=== PATIENT | male | born 1945 | race Caucasian/White ===

== ENCOUNTER 2020-07-15 16:26 | Emergency (ER) | payer MEDICARE, BC ==
[2020-07-15] MEDS ORDERED: Sodium Chloride 0.9% 10 ML Syringe FLUSH PRN (16:37)
[2020-07-15] MEDS ORDERED: Metoprolol Tartrate 5 MG/5 ML SDV IVPUSH STA ×2 (16:38→17:11)
[2020-07-15] MEDS ORDERED: Metoprolol Succinate 50 MG Tab.ER PO STA (16:40)
[2020-07-15 17:31] VITALS: BP 130/63; PULSE 122
--- NOTE | 2020-07-15 18:09 | EDM.PDOC ---
ED HPI GENERAL MEDICAL PROBLEM - General Chief Complaint: Cardiovascular Problem Stated Complaint: A-FIB Time Seen by Provider: 07/15/20 16:35 Source of Information: Reports: Patient History Limitations: Reports: No Limitations - History of Present Illness INITIAL COMMENTS - FREE TEXT/NARRATIVE: Patient presented to the ED because of palpitations which got worse for the past week and his pMD ordered for an echo this morning but it was cancelled because his HR was too fast according to him. He was diagnosed with AFIB years ago and is taking metoprolol 25 mg daily. Denies any chest pain, dizziness, but has dyspnea most of the time and he was started on lasix for this. 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 Musculoskeletal History: Reports: None Neurological History: Reports: None Psychiatric History: Reports: Depression Endocrine/Metabolic History: Reports: None Hematologic History: Reports: Anemia, Blood Transfusion(s) Immunologic History: Reports: None Oncologic (Cancer) History: Reports: Colon Dermatologic History: Reports: None - Past Surgical History HEENT Surgical History: Reports: Tonsillectomy Respiratory Surgical History: Reports: None GI Surgical History: Reports: Appendectomy, Cholecystectomy, Colon, Colonoscopy Other GI Surgeries/Procedures: COLON RESECTION 2013 Endocrine Surgical History: Reports: None Social & Family History - Family History Family Medical History: No Pertinent Family History - Tobacco Use Tobacco Use Status *Q: Unknown Ever Used Tobacco - Caffeine Use Caffeine Use: Reports: None ED ROS GENERAL - Review of Systems Review Of Systems: See Below Constitutional: Reports: No Symptoms HEENT: Reports: No Symptoms Respiratory: Reports: No Symptoms Cardiovascular: Reports: Palpitations Endocrine: Reports: No Symptoms GI/Abdominal: Reports: No Symptoms : Reports: No Symptoms Musculoskeletal: Reports: No Symptoms Skin: Reports: No Symptoms Neurological: Reports: No Symptoms Psychiatric: Reports: No Symptoms ED EXAM, GENERAL - Physical Exam Exam: See Below Exam Limited By: No Limitations General Appearance: Alert, No Apparent Distress Eye Exam: Bilateral Eye: PERRL Ears: Normal External Exam, Normal Canal Nose: Normal Inspection, Normal Mucosa, No Blood Throat/Mouth: Normal Inspection, Normal Lips, Normal Teeth, Normal Gums Head: Atraumatic, Normocephalic Neck: Normal Inspection, Supple, Non-Tender, Full Range of Motion Respiratory/Chest: No Respiratory Distress, Lungs Clear, Normal Breath Sounds Cardiovascular: Normal Peripheral Pulses, Tachycardia, Irregularly Irregular GI/Abdominal: Normal Bowel Sounds, Soft, Non-Tender, No Organomegaly Back Exam: Normal Inspection, Full Range of Motion Extremities: Normal Inspection, Normal Range of Motion, Pedal Edema Neurological: Alert, Oriented, CN II-XII Intact, Normal Cognition #1 Interpretation EKG Date: 07/15/20 Time: 16:32 Rhythm: Other (SVT) Rate (Beats/Min): 144 [place]: Normal P-Wave: Present QRS: Normal Comparison: NA - No Prior EKG EKG Interpretation Comments: SVT PVC's #2 Interpretation EKG Date: 07/15/20 Time: 16:33 Rhythm: NSR Rate (Beats/Min): 110 [place]: Normal P-Wave: Present QRS: Normal ST-T: Normal QT: Normal Comparison: NA - No Prior EKG EKG Interpretation Comments: Sinus Tach #3 Interpretation EKG Date: 07/15/20 Time: 17:51 Rhythm: NSR Rate (Beats/Min): 80 [place]: Normal P-Wave: Present QRS: Normal ST-T: Normal QT: Normal Comparison: NA - No Prior EKG EKG Interpretation Comments: NSR PVC's Course - Vital Signs Text/Narrative:: Lab and EKG result was reviewed and discussed with patient Lopressor 5 mg IV x 2 doses Metoprolol tartrate 50 mg PO x1 Last Recorded V/S: Last Vital Signs Temp 37.3 C 07/15/20 16:30 Pulse 122 H 07/15/20 17:30 Resp 20 07/15/20 16:30 BP 130/63 07/15/20 17:30 Pulse Ox 96 07/15/20 16:30 - Orders/Labs/Meds Orders: Active Orders 24 hr Category Date Time Status EKG Documentation Completion [RC] ASDIRECTED Care 07/15/20 16:38 Active Sodium Chloride 0.9% [Saline Flush] Med 07/15/20 16:37 Active 10 ml FLUSH ASDIRECTED PRN Saline Lock Insert [OM.PC] Routine Oth 07/15/20 16:37 Ordered EKG 12 Lead [EK] Routine Ther 07/15/20 16:37 Ordered Medication Orders Sodium Chloride (Sodium Chloride 0.9% 10 Ml Syringe) 10 ml FLUSH ASDIRECTED PRN PRN Reason: Keep Vein Open Last Admin: 07/15/20 17:16 Dose: 10 ml Documented by: TOM Labs: Laboratory Tests 07/15/20 07/15/20 07/15/20 Range/Units 16:48 16:48 16:48 WBC 10.0 (3.2-10.1) x10-3/uL RBC 4.52 (3.90-5.90) x10(6)uL Hgb 15.2 (12.9-17.7) g/dL Hct 43.3 (38.3-50.1) % MCV 95.9 (80.8-98.7) fL MCH 33.6 H (27.0-33.3) pg MCHC 35.0 (28.7-35.3) g/dL RDW 13.3 (12.4-15.0) % Plt Count 205 (117-477) x10(3)uL MPV 9.2 (6.7-11.0) fL Neut % (Auto) 75.7 H (40.3-71.8) % Lymph % (Auto) 12.6 L (15.8-45.3) % [place] % (Auto) 10.4 (5.5-15.2) % Eos % (Auto) 1.0 (0.1-6.8) % Baso % (Auto) 0.3 (0.3-3.8) % Neut # (Auto) 7.6 H (1.7-6.9) x10-3/uL Lymph # (Auto) 1.3 (0.5-4.5) x10-3/uL [place] # (Auto) 1.0 (0.0-1.2) x10-3/uL Eos # (Auto) 0.1 (0.0-0.6) x10-3/uL Baso # (Auto) 0.0 (0.0-0.3) x10-3/uL PT 10.8 (9.0-11.1) sec INR 1.00 (1.00-1.24) APTT 23.3 L (24.4-33.2) SECONDS Sodium 140 (135-145) mmol/L Potassium 3.7 (3.5-5.3) mmol/L Chloride 99 L (100-110) mmol/L Carbon Dioxide 27 (21-32) mmol/L BUN 21 H (7-18) mg/dL Creatinine 1.6 H (0.70-1.30) mg/dL Est Cr Clr Drug Dosing TNP Estimated GFR (MDRD) 42 L (>60) BUN/Creatinine Ratio 13.1 (9-20) Glucose 189 H (80-116) mg/dL Calcium 8.9 (8.6-10.2) mg/dL Total Bilirubin 0.9 (0.1-1.3) mg/dL AST 17 (5-25) IU/L ALT 36 (12-36) U/L Alkaline Phosphatase 73 (56-112) IU/L Troponin I (4.0-60.3) pg/mL Total Protein 7.2 (6.0-8.0) g/dL Albumin 3.7 (3.2-4.6) g/dL Globulin 3.5 g/dL Albumin/Globulin Ratio 1.1 07/15/20 Range/Units 16:48 WBC (3.2-10.1) x10-3/uL RBC (3.90-5.90) x10(6)uL Hgb (12.9-17.7) g/dL Hct (38.3-50.1) % MCV (80.8-98.7) fL MCH (27.0-33.3) pg MCHC (28.7-35.3) g/dL RDW (12.4-15.0) % Plt Count (117-477) x10(3)uL MPV (6.7-11.0) fL Neut % (Auto) (40.3-71.8) % Lymph % (Auto) (15.8-45.3) % [place] % (Auto) (5.5-15.2) % Eos % (Auto) (0.1-6.8) % Baso % (Auto) (0.3-3.8) % Neut # (Auto) (1.7-6.9) x10-3/uL Lymph # (Auto) (0.5-4.5) x10-3/uL [place] # (Auto) (0.0-1.2) x10-3/uL Eos # (Auto) (0.0-0.6) x10-3/uL Baso # (Auto) (0.0-0.3) x10-3/uL PT (9.0-11.1) sec INR (1.00-1.24) APTT (24.4-33.2) SECONDS Sodium (135-145) mmol/L Potassium (3.5-5.3) mmol/L Chloride (100-110) mmol/L Carbon Dioxide (21-32) mmol/L BUN (7-18) mg/dL Creatinine (0.70-1.30) mg/dL Est Cr Clr Drug Dosing Estimated GFR (MDRD) (>60) BUN/Creatinine Ratio (9-20) Glucose (80-116) mg/dL Calcium (8.6-10.2) mg/dL Total Bilirubin (0.1-1.3) mg/dL AST (5-25) IU/L ALT (12-36) U/L Alkaline Phosphatase (56-112) IU/L Troponin I 16.6 (4.0-60.3) pg/mL Total Protein (6.0-8.0) g/dL Albumin (3.2-4.6) g/dL Globulin g/dL Albumin/Globulin Ratio Meds: Medications Generic Name Dose Route Start Last Admin Trade Name Freq PRN Reason Stop Dose Admin Sodium Chloride 10 ml 07/15/20 16:37 07/15/20 17:16 Sodium Chloride 0.9% 10 Ml Syringe FLUSH 10 ml ASDIRECTED PRN Administration Keep Vein Open Discontinued Medications Generic Name Dose Route Start Last Admin Trade Name Freq PRN Reason Stop Dose Admin Metoprolol Succinate 50 mg 07/15/20 16:40 07/15/20 16:55 Metoprolol Succinate 50 Mg Tab.Er PO 07/15/20 16:41 50 mg NOW STA Administration Metoprolol Tartrate 5 mg 07/15/20 16:38 07/15/20 16:52 Metoprolol Tartrate 5 Mg/5 Ml Sdv IVPUSH 07/15/20 16:39 5 mg NOW STA Administration Metoprolol Tartrate 5 mg 07/15/20 17:11 07/15/20 17:30 Metoprolol Tartrate 5 Mg/5 Ml Sdv IVPUSH 07/15/20 17:12 5 mg NOW STA Administration Departure - Departure Time of Disposition: 18:25 Disposition: Home, Self-Care 01 Condition: Good Clinical Impression: Palpitations Instructions: Palpitations, [id number] Referrals: Mina Duval MD [Primary Care Provider] - Forms: ED Department Discharge Additional Instructions: Please read discharge instructions on palpitations Increase the dose of your metoprolol from 25 mg daily to 50 mg daily Reschedule your echocardiogram Keep your appointment to be seen by your doctor this week Sepsis Event Note (ED) - Evaluation Sepsis Screening Result: No Definite Risk - Focused Exam Vital Signs: Vital Signs Temp Pulse Pulse Resp BP BP Pulse Ox 07/15/20 17:30 122 H 130/63 07/15/20 16:55 140 H 145/83 H 07/15/20 16:52 140 H 145/83 H 07/15/20 16:30 37.3 C 140 H 20 168/120 H 96 - My Orders Last 24 Hours: My Active Orders 07/15/20 16:37 Sodium Chloride 0.9% [Saline Flush] 10 ml FLUSH ASDIRECTED PRN Saline Lock Insert [OM.PC] Routine EKG 12 Lead [EK] Routine 07/15/20 16:38 EKG Documentation Completion [RC] ASDIRECTED - Assessment/Plan Last 24 Hours: My Active Orders 07/15/20 16:37 Sodium Chloride 0.9% [Saline Flush] 10 ml FLUSH ASDIRECTED PRN Saline Lock Insert [OM.PC] Routine EKG 12 Lead [EK] Routine 07/15/20 16:38 EKG Documentation Completion [RC] ASDIRECTED
== END 2020-07-15 18:40 | disposition home or self-care (01) ==
LOC: FB.ED 16:26
DX: R00.2 Palpitations (principal)
CPT/HCPCS: 36415; 80053; 84484; 85025; 85610; 85730; 93005; 96374; 96376; 99285-25; A9270-GY; J3490

== ENCOUNTER 2020-08-22 08:19 | Emergency (ER) | payer MEDICARE, BC ==
[2020-08-22] MEDS ORDERED: traMADol 50 MG Tab PO STA (09:17)
[2020-08-22] MEDS ORDERED: Acetaminophen 500 MG Tab PO STA (09:17)
--- NOTE | 2020-08-22 09:57 | EDM.PDOC ---
ED HPI GENERAL MEDICAL PROBLEM - General Stated Complaint: LEFT WRIST PAIN Time Seen by Provider: 08/22/20 08:30 Source of Information: Reports: Patient History Limitations: Reports: No Limitations - History of Present Illness INITIAL COMMENTS - FREE TEXT/NARRATIVE: Patient presented to the ED because of left wrist pain and swelling. He had an angiogram done on his left antecubital area yesterday and last night his left hand and wrist started throbbing and swelling. Left Wrist Pain Score (Numeric/FACES): 9 - Related Data Allergies Allergy/AdvReac Type Severity Reaction Status Date / Time No Known Allergies Allergy Verified 07/15/20 17:11 Home Meds: Home Meds Metoprolol Succinate 75 mg PO DAILY 07/15/20 [History] Cyanocobalamin (Vitamin B-12) [Vitamin B-12] 1,000 mcg SL DAILY 08/22/20 [History] Emollient [Vanicream] 1 applic TOP TID PRN 08/22/20 [History] Furosemide [Lasix] 20 mg PO DAILY 08/22/20 [History] Glimepiride [Amaryl] 2 mg PO WITHBREAKFAST 08/22/20 [History] HCTZ/Triamterene [Dyazide 25-37.5 MG] 1 cap PO DAILY 08/22/20 [History] Magnesium Chloride [Slow-Mag] 2 tab PO DAILY 08/22/20 [History] Potassium Chloride [Klor-Con 10] 10 meq PO DAILY 08/22/20 [History] atorvaSTATin [Lipitor] 10 mg PO BEDTIME 08/22/20 [History] cephALEXin [Keflex] 500 mg PO Q8H #30 cap 08/22/20 [Rx] metFORMIN HCl [Metformin ER Gastric] 1,000 mg PO BID 08/22/20 [History] traMADol [Ultram] 100 mg PO Q8H PRN #15 tab 08/22/20 [Rx] Past Medical History Cardiovascular History: Reports: Afib, SOB on Exertion Respiratory History: Reports: None Gastrointestinal History: Reports: Cholelithiasis Genitourinary History: Reports: None 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 Musculoskeletal History: Reports: None Neurological History: Reports: None Psychiatric History: Reports: Depression Endocrine/Metabolic History: Reports: None Hematologic History: Reports: Anemia, Blood Transfusion(s) Immunologic History: Reports: None Oncologic (Cancer) History: Reports: Colon Dermatologic History: Reports: None - Past Surgical History HEENT Surgical History: Reports: Tonsillectomy Respiratory Surgical History: Reports: None GI Surgical History: Reports: Appendectomy, Cholecystectomy, Colon, Colonoscopy Other GI Surgeries/Procedures: COLON RESECTION 2014 Endocrine Surgical History: Reports: None Social & Family History - Family History Family Medical History: No Pertinent Family History - Caffeine Use Caffeine Use: Reports: None ED ROS GENERAL - Review of Systems Review Of Systems: See Below Constitutional: Reports: No Symptoms HEENT: Reports: No Symptoms Respiratory: Reports: No Symptoms Cardiovascular: Reports: No Symptoms Endocrine: Reports: No Symptoms GI/Abdominal: Reports: No Symptoms : Reports: No Symptoms Musculoskeletal: Reports: No Symptoms Skin: Reports: Erythema Neurological: Reports: No Symptoms Psychiatric: Reports: No Symptoms ED EXAM, GENERAL - Physical Exam Exam: See Below Exam Limited By: No Limitations General Appearance: Alert, No Apparent Distress Eye Exam: Bilateral Eye: PERRL Ears: Normal External Exam, Normal Canal Nose: Normal Inspection, Normal Mucosa, No Blood Throat/Mouth: Normal Inspection, Normal Lips, Normal Teeth Head: Atraumatic, Normocephalic Neck: Normal Inspection, Supple, Non-Tender, Full Range of Motion Respiratory/Chest: No Respiratory Distress, Lungs Clear, Normal Breath Sounds, No Accessory Muscle Use, Chest Non-Tender Cardiovascular: Normal Peripheral Pulses, Regular Rate, Rhythm, No Edema, No Gallop, No JVD, No Murmur, No Rub GI/Abdominal: Normal Bowel Sounds, Soft, Non-Tender, No Organomegaly Back Exam: Normal Inspection, Full Range of Motion Extremities: Normal Inspection, Normal Range of Motion, Non-Tender, Other (left wrist tenderness and swelling) Neurological: Oriented Course - Vital Signs Text/Narrative:: Lab and xray result was reviewed and discussed with patient Tramadol 100 mg PO x1 Tylenol 1000 mg PO x1 Last Recorded V/S: Last Vital Signs Temp 37.3 C 08/22/20 08:26 Pulse 66 08/22/20 08:26 Resp 20 08/22/20 08:26 BP 145/80 H 08/22/20 08:26 Pulse Ox 93 L 08/22/20 08:26 - Orders/Labs/Meds Orders: Active Orders 24 hr Category Date Time Status Wrist Comp Min 3V Lt [CR] Stat Exams 08/22/20 09:19 Taken Labs: Laboratory Tests 08/22/20 08/22/20 08/22/20 Range/Units 09:35 09:35 09:35 WBC 12.5 H (3.2-10.1) x10-3/uL RBC 4.54 (3.90-5.90) x10(6)uL Hgb 14.8 (12.9-17.7) g/dL Hct 42.7 (38.3-50.1) % MCV 94.1 (80.8-98.7) fL MCH 32.6 (27.0-33.3) pg MCHC 34.6 (28.7-35.3) g/dL RDW 13.1 (12.4-15.0) % Plt Count 216 (117-477) x10(3)uL MPV 9.9 (6.7-11.0) fL Neut % (Auto) 82.2 H (40.3-71.8) % Lymph % (Auto) 6.5 L (15.8-45.3) % [place] % (Auto) 10.8 (5.5-15.2) % Eos % (Auto) 0.4 (0.1-6.8) % Baso % (Auto) 0.1 L (0.3-3.8) % Neut # (Auto) 10.3 H (1.7-6.9) x10-3/uL Lymph # (Auto) 0.8 (0.5-4.5) x10-3/uL [place] # (Auto) 1.3 H (0.0-1.2) x10-3/uL Eos # (Auto) 0.0 (0.0-0.6) x10-3/uL Baso # (Auto) 0.0 (0.0-0.3) x10-3/uL D-Dimer, Quantitative 0.41 (0.0-0.59) mg/LFEU Sodium 138 (135-145) mmol/L Potassium 3.7 (3.5-5.3) mmol/L Chloride 98 L (100-110) mmol/L Carbon Dioxide 29 (21-32) mmol/L BUN 18 (7-18) mg/dL Creatinine 1.4 H (0.70-1.30) mg/dL Est Cr Clr Drug Dosing 45.63 mL/min Estimated GFR (MDRD) 49 L (>60) BUN/Creatinine Ratio 12.9 (9-20) Glucose 210 H (80-116) mg/dL Calcium 9.4 (8.6-10.2) mg/dL Meds: Medications Discontinued Medications Generic Name Dose Route Start Last Admin Trade Name Freq PRN Reason Stop Dose Admin Acetaminophen 1,000 mg 08/22/20 09:17 08/22/20 09:24 Acetaminophen 500 Mg Tab PO 08/22/20 09:18 1,000 mg NOW STA Administration Tramadol HCl 100 mg 08/22/20 09:17 08/22/20 09:23 Tramadol 50 Mg Tab PO 08/22/20 09:18 100 mg NOW STA Administration Departure - Departure Time of Disposition: 10:30 Disposition: Home, Self-Care 01 Condition: Good Clinical Impression: Cellulitis - Discharge Information Prescriptions: cephALEXin [Keflex] 500 mg PO Q8H #30 cap traMADol [Ultram] 100 mg PO Q8H PRN #15 tab PRN Reason: Pain Referrals: Mina Duval MD [Primary Care Provider] - Additional Instructions: Please read discharge instructions on cellulitis Apply warm compress on your left hand and wrist Keflex 500 mg 3 times daily for 10 days Tramadol 100 mg with tylenol 1000 mg every 8 hours as needed for pain Follow up if no improvement in 5 days Sepsis Event Note (ED) - Evaluation Sepsis Screening Result: No Definite Risk - Focused Exam Vital Signs: Vital Signs Temp Pulse Resp BP Pulse Ox 08/22/20 08:26 37.3 C 66 20 145/80 H 93 L - My Orders Last 24 Hours: My Active Orders 08/22/20 09:19 Wrist Comp Min 3V Lt [CR] Stat - Assessment/Plan Last 24 Hours: My Active Orders 08/22/20 09:19 Wrist Comp Min 3V Lt [CR] Stat
[2020-08-22 10:32] VITALS: BP 130/68; PULSE 60
--- NOTE | 2020-08-22 10:52 | CR ---
INDICATION: Left wrist pain. No history of injury. LEFT WRIST: Three views of the left wrist were obtained 08/22/20 - no comparison. Moderate hypertrophic degenerative changes are noted at the first metacarpal carpal joint. Minimal degenerative changes are noted at intertarsal joints - navicular multangular and capitate hamate interfaces as well as navicular capitellum interface. An acute fracture or dislocation was not identified. IMPRESSION: Osteoarthritis. MTDD
== END 2020-08-22 10:48 | disposition home or self-care (01) ==
LOC: FB.ED 08:19
DX: L03.114 Cellulitis of left upper limb (principal); Z79.899 Other long term (current) drug therapy; Z79.84 Long term (current) use of oral hypoglycemic drugs
CPT/HCPCS: 36415; 73110-LT; 80048; 85025; 85379; 99283-25; A9270-GY

== ENCOUNTER 2022-01-05 10:47 | Day surgery (SDC) | payer MEDICARE, BC ==
[2022-01-05] MEDS ORDERED: Midazolam 1 MG/ML 2 ML SDV IV ONE (10:48)
[2022-01-05] MEDS ORDERED: fentaNYL 100 MCG/2 ML SDV IV ONE (10:48)
[2022-01-05] MEDS ORDERED: acetaZOLAMIDE 500 MG Cap.ER PO ONE (11:00)
[2022-01-05] MEDS ORDERED: Lactated Ringers 1,000 ML IV SCH (11:00)
[2022-01-05] MEDS ORDERED: Sodium Chloride 0.9% 10 ML Syringe FLUSH PRN (11:00)
[2022-01-05 13:33] VITALS: BP 147/65; PULSE 61
== END 2022-01-05 13:15 | disposition home or self-care (01) ==
LOC: FB.SDS 10:47
PROVIDERS: ATTEND Ophthalmology
DX: E11.36 Type 2 diabetes mellitus with diabetic cataract (principal); H25.813 Combined forms of age-related cataract, bilateral; D31.31 Benign neoplasm of right choroid; E11.59 Type 2 diabetes mellitus with other circulatory complications; I15.2 Hypertension secondary to endocrine disorders; N40.1 Benign prostatic hyperplasia with lower urinary tract symptoms; N39.41 Urge incontinence; E66.01 Morbid (severe) obesity due to excess calories; E83.42 Hypomagnesemia; Z90.49 Acquired absence of other specified parts of digestive tract; Z98.890 Other specified postprocedural states; Z79.899 Other long term (current) drug therapy; Z68.39 Body mass index [BMI] 39.0-39.9, adult; Z79.84 Long term (current) use of oral hypoglycemic drugs
CPT/HCPCS: 00142; 66984; 82947; A9270; J2250; J3010; J3490; J7120; V2632

== ENCOUNTER 2022-01-26 10:26 | Day surgery (SDC) | payer MEDICARE, BC ==
[2022-01-26] MEDS ORDERED: Midazolam 1 MG/ML 2 ML SDV IV ONE (10:27)
[2022-01-26] MEDS ORDERED: fentaNYL 100 MCG/2 ML SDV IV ONE (10:27)
[2022-01-26] MEDS ORDERED: Sodium Chloride 0.9% 10 ML Syringe FLUSH PRN (10:30)
[2022-01-26] MEDS ORDERED: Lactated Ringers 1,000 ML IV PRN (10:30)
[2022-01-26] MEDS ORDERED: acetaZOLAMIDE 500 MG Cap.ER PO ONE (11:00)
[2022-01-26 14:04] VITALS: BP 113/70; PULSE 68
== END 2022-01-26 12:45 | disposition home or self-care (01) ==
LOC: FB.SDS 10:26
PROVIDERS: ATTEND Ophthalmology
DX: E11.36 Type 2 diabetes mellitus with diabetic cataract (principal); H25.813 Combined forms of age-related cataract, bilateral; D31.31 Benign neoplasm of right choroid; H21.81 Floppy iris syndrome; E11.69 Type 2 diabetes mellitus with other specified complication; E78.00 Pure hypercholesterolemia, unspecified; N40.1 Benign prostatic hyperplasia with lower urinary tract symptoms; E66.01 Morbid (severe) obesity due to excess calories; Z90.49 Acquired absence of other specified parts of digestive tract; Z98.890 Other specified postprocedural states; Z79.899 Other long term (current) drug therapy; Z79.84 Long term (current) use of oral hypoglycemic drugs
CPT/HCPCS: 00142-QZ; 82947; A9270-GY; J2250; J3010; J7120; V2632